=== PATIENT | male | born 1980 | race American Indian/Alaskan Native ===

== ENCOUNTER → 2024-09-28 | Outpatient (CLI) | payer OTHER, SELFPAY ==
--- NOTE | 2024-09-28 16:30 | XR_ITS ---
Exam: MRI knee without contrast, right Date and time of exam: September 28, 2024 1702 hours Comparison March 04, 2023 INDICATIONS: History complex tear posterior horn medial meniscus reconstructed anterior cruciate ligament MRI study March 04, 2023, additional weakness instability beginning 2008 Technique: Multiple axial, coronal, and sagittal sections on the knee have been obtained. T2-Weighted sagittal, fat-suppressed images, TR 3,500, TE 62, T2 weighted coronal fat-saturated images, TR 3,500, TE 62 Proton density sagittal sections, TR 1800, TE 31. T-1 weighted coronal images, TR 524, TE 13.0 Findings: Medial meniscus anterior horn intact Medial meniscus, body truncation inner margin which may be postsurgical. Posterior horn medial meniscus truncation inner margin, complex vertical and horizontal tears. Lateral meniscus anterior horn is intact Lateral meniscus, body is intact Posterior horn lateral meniscus is intact Reconstructed anterior cruciate ligament intact Posterior cruciate ligament appears intact. Knee effusion is small. Quadriceps and patellar tendons appear intact. There is no evidence of tendinosis. Inflammatory change or fracture of Hoffa's fat pad is not seen. Medial patellar facet demonstrates moderate thinning. Lateral patellar facet cartilage demonstrates moderate thinning. Trochlear cartilage demonstrates moderate thinning. Marrow signal magnetic susceptibility artifact secondary to orthopedic hardware. Medial collateral ligament appears intact. No meniscocapsular separation is seen. Illiotibial band and fibular collateral ligament are intact. Biceps femoris tendons appear intact. Medial femoral condylar articular cartilage demonstrates moderate thinning. Lateral femoral condylar articular cartilage demonstratesmoderate thinning. Tibial plateau cartilage demonstrates moderate thinning. Impression: Complex tear posterior horn medial meniscus Intact reconstructed anterior cruciate ligament
== END | disposition home or self-care (01) ==
PROVIDERS: Referring Provider Nurse Practitioner Family; Visit Provider Nurse Practitioner Family
DX: S83.241A Other tear of medial meniscus, current injury, right knee, initial encounter (principal); X58.XXXA Exposure to other specified factors, initial encounter
CPT/HCPCS: 73721

== ENCOUNTER → 2024-12-18 | Outpatient (CLI) | payer OTHER, SELFPAY ==
--- NOTE | 2024-12-18 11:50 | XR_ITS ---
Examination: Hand, right 3 views Technique: Hand AP, oblique, lateral 3 views Date and time of exam: December 18, 2024 1316 hours INDICATIONS: Patient fell 3 weeks ago with fracture fifth metacarpal FINDINGS: Early healing fracture fifth metacarpal with mild dorsal angulation at the fracture site Healing fracture base fourth metacarpal with satisfactory alignment IMPRESSION: Early healing fracture fifth metacarpal with mild dorsal angulation at the fracture site Healing fracture base fourth metacarpal with satisfactory alignment
--- NOTE | 2024-12-18 11:51 | XR_ITS ---
Examination: Wrist, right 3 views Technique: Wrist AP, oblique, lateral 3 views Date and time of exam: December 18, 2024 1316 hours INDICATIONS: Patient fell 3 weeks ago with hand fractures FINDINGS: Healing fracture distal fifth metacarpal with dorsal angulation, mild at the fracture site Healing fracture base fourth metacarpal with satisfactory alignment IMPRESSION: Healing fractures fourth and fifth metacarpals as above
== END | disposition home or self-care (01) ==
LOC: SDIM 11:41
PROVIDERS: Referring Provider Nurse Practitioner Gerontology; Visit Provider Nurse Practitioner Gerontology
DX: S62.316A Displaced fracture of base of fifth metacarpal bone, right hand, initial encounter for closed fracture (principal); S62.314A Displaced fracture of base of fourth metacarpal bone, right hand, initial encounter for closed fracture; W19.XXXA Unspecified fall, initial encounter
CPT/HCPCS: 73110; 73130

== ENCOUNTER 2025-03-12 09:13 | Outpatient (RCR) | payer OTHER, SELFPAY ==
--- NOTE | 2025-03-12 09:42 | PT.OIERPT ---
PT OP Initial Eval Patient Information Outpatient Physical Therapy Treatment Date: 03/12/25 Visit Reasons: Rt hand pain Medical Diagnosis: Right Closed displaced fracture of base of 5th metacarpal bone Treatment Dx #1: Right Hand Pain Treatment Dx #2: Right Hand Mobility Deficits Start of Care: 03/12/25 Date of Onset: December 2024 Smoking Status Smoking Status: Never smoker Initial Assessment Subjective: Pt is a 44 y/o male s/p right 5th metacarpal ORIF December 2024 due to fracture from a fall. Pt had the pin removed 02/14/25. Pt still has pain (6/10) with activities. Pt has limitation with gripping, lifting, chores, recreational activities, and performing ADLs. Objective: Right Wrist AROM: all motions are WNL Right Wrist MMTs: grossly 4-/5 Right MCP Flexion: 80 deg Online Education Manager Strength L: 100 lbs R: 105 lbs Assessment: Pt demonstrate right hand pain with mobility deficits s/p surgery leading to difficulty with ADLs. Pt will benefit from physical therapy to increase ROM, strength, and work on hand dexterity Short Term and Fdc Goals 1) Increase right japanese interpreter strength to 110 lbs in 6 wks to be able to perform gripping activities 2) Decrease hand pain to 2/10 in 6 wks to be able to perform recreational activities 3) Increase right 5th digit flexion AROM WNL in 6 wks to be able to perform ADLs. 4) Indep with HEP Treatment Plan 1) Manual Therapy 2) Therapeutic Activities 3) Therapeutic Exercises 4) Modalities (ice, heat) Frequency and Duration: 2 x wk for 6 wks Certification Dates: 03/12/25 to 06/12/25 Procedure Charges OP PT Eval Mod Complex 30 minutes: Yes
== END 2025-03-15 23:59 | disposition home or self-care (01) ==
LOC: CPTX 09:13
PROVIDERS: PCP Surgery; Referring Provider Surgery; Visit Provider Surgery
DX: M79.641 Pain in right hand (principal); S62.316D Displaced fracture of base of fifth metacarpal bone, right hand, subsequent encounter for fracture with routine healing; X58.XXXD Exposure to other specified factors, subsequent encounter
CPT/HCPCS: 97162

== ENCOUNTER 2025-04-11 08:00 | Outpatient (RCR) | payer OTHER, SELFPAY ==
--- NOTE | 2025-03-20 08:44 | PT.ODAYNRPT ---
PT Outpatient Daily Note OP Daily Note Outpatient Physical Therapy Treatment Date: 03/20/25 Visit Reasons: right hand pain Subjective: Pt's hand is much better. Pt has been using his partner's weight at home for hand exercises. Pt is unsure if it's 5# or 1#. Objective: Please see flow chart for list of ther ex performed Assessment: patient tolerate exercises well with minimal pain. Pt cue to pace with hand exercises to decrease fatigue Plan: Continue with PT Length of Time (minutes) of Treatment: 30 Minutes Procedure Charges Therapeutic Exercise 30 minutes: Yes
--- NOTE | 2025-03-27 08:32 | PT.ODAYNRPT ---
PT Outpatient Daily Note OP Daily Note Outpatient Physical Therapy Treatment Date: 03/27/25 Visit Reasons: right hand pain Subjective: Pt's right hand is better. Pt denies of soreness after last session. Pt wants to increase hand resistance today Objective: Please see flow chart for list of ther ex performed Assessment: progress patient to all green hand resistance exercise with good form noted. Pt tolerate exercise well and denies of pain. Cues to decrease upper trape recruitment with internal and external band exercise Plan: Continue with PT Length of Time (minutes) of Treatment: 30 Minutes Procedure Charges Therapeutic Exercise 30 minutes: Yes
--- NOTE | 2025-04-03 08:27 | PT.ODAYNRPT ---
PT Outpatient Daily Note OP Daily Note Outpatient Physical Therapy Treatment Date: 04/03/25 Visit Reasons: right hand pain Subjective: Pt's hand feels good. No new concerns to report. Pt feels stronger and wants to be challenge in therapy. Objective: Please see flow chart for list of ther ex performed Assessment: all exercises performed with green resistance with good form and tolerance noted. Pt demonstrate functional 5th digit flexion AROM and can now make a fist Plan: Continue with PT Length of Time (minutes) of Treatment: 30 Minutes Procedure Charges Therapeutic Exercise 30 minutes: Yes
--- NOTE | 2025-04-11 08:31 | PT.ODAYNRPT ---
PT Outpatient Daily Note OP Daily Note Outpatient Physical Therapy Treatment Date: 04/11/25 Visit Reasons: right hand pain Subjective: Pt's hand is feeling stronger with less pain. Pt has been able to drive longer with less limitation. Objective: Please see flow chart for list of ther ex performed Assessment: continue to progress with resistance and progress patient to green TB/hand resistance equipment Plan: Continue with PT Length of Time (minutes) of Treatment: 30 Minutes Procedure Charges Therapeutic Exercise 30 minutes: Yes
== END 2025-04-15 23:59 | disposition home or self-care (01) ==
LOC: CPTX 08:00
PROVIDERS: PCP Surgery; Referring Provider Surgery; Visit Provider Surgery
DX: M79.641 Pain in right hand (principal); S62.316D Displaced fracture of base of fifth metacarpal bone, right hand, subsequent encounter for fracture with routine healing; W19.XXXD Unspecified fall, subsequent encounter
CPT/HCPCS: 97110

== ENCOUNTER 2025-04-24 08:01 | Outpatient (RCR) | payer OTHER, SELFPAY ==
--- NOTE | 2025-04-24 08:41 | PT.ODAYNRPT ---
PT Outpatient Daily Note OP Daily Note Outpatient Physical Therapy Treatment Date: 04/24/25 Visit Reasons: RT hand pain Subjective: Pt reports R hand is progressing, he can perform his ADLs. Objective: Please see flow sheet for ther ex list. Assessment: Pt able to perform functional strengthening exercises with good technique. Plan: Continue with poC. Length of Time (minutes) of Treatment: 30 Minutes Procedure Charges Therapeutic Exercise 30 minutes: Yes
== END 2025-05-15 23:59 | disposition home or self-care (01) ==
LOC: CPTX 08:01
PROVIDERS: PCP Surgery; Referring Provider Surgery; Visit Provider Surgery
DX: M79.641 Pain in right hand (principal); S62.316D Displaced fracture of base of fifth metacarpal bone, right hand, subsequent encounter for fracture with routine healing; W19.XXXD Unspecified fall, subsequent encounter
CPT/HCPCS: 97110

== ENCOUNTER 2025-06-11 08:00 | Outpatient (RCR) | payer OTHER, SELFPAY ==
--- NOTE | 2025-05-17 15:59 | PT.ODAYNRPT ---
PT Outpatient Daily Note OP Daily Note Outpatient Physical Therapy Treatment Date: 05/17/25 Visit Reasons: RIGHT HAND PAIN Subjective: Pt's hand feels better and stronger. Pt is also doing physical therapy at [facility] for his knee due to ligamentous injury. Objective: Please see flow chart for list of ther ex performed Assessment: tolerate exercises performed. Pt demonstrate fill 5th digit flexion AROM Plan: Continue with PT Length of Time (minutes) of Treatment: 30 Minutes Procedure Charges Therapeutic Exercise 30 minutes: Yes
--- NOTE | 2025-05-22 09:35 | PT.ODAYNRPT ---
PT Outpatient Daily Note OP Daily Note Outpatient Physical Therapy Treatment Date: 05/22/25 Visit Reasons: RIGHT HAND PAIN Subjective: Pt's hand is good. No concerns to report. Pt is satisfy that making a fist is getting easier. Objective: Please see flow chart for list of ther ex performed Assessment: tolerate exercises with minimal pain. slight fatigue post PT session Plan: Continue with PT Length of Time (minutes) of Treatment: 30 Minutes Procedure Charges Therapeutic Exercise 30 minutes: Yes
--- NOTE | 2025-05-29 09:56 | PT.ODAYNRPT ---
PT Outpatient Daily Note OP Daily Note Outpatient Physical Therapy Treatment Date: 05/29/25 Visit Reasons: RIGHT HAND PAIN Subjective: Pt's hand is much better. Pt seen hand specialist and mentioned they have release him from care and to complete recommended PT sessions. Objective: Please see flow chart for list of ther ex performed Assessment: progressing well with hand exercises. Pt tolerate all exercises with minimal pain reported Plan: Continue with PT Length of Time (minutes) of Treatment: 30 Minutes Procedure Charges Therapeutic Exercise 30 minutes: Yes
--- NOTE | 2025-06-11 08:35 | PT.ODAYNRPT ---
PT Outpatient Daily Note OP Daily Note Outpatient Physical Therapy Treatment Date: 06/11/25 Visit Reasons: RIGHT HAND PAIN Subjective: Pt's hand feels much better. Pt feels stronger and has been able to use the hand for more ADLs around the house. Objective: Please see flow chart for list of ther ex performed Assessment: progressing with hand exercises and added wrist roll with fatigue reported post exercise Plan: Continue with PT Length of Time (minutes) of Treatment: 30 Minutes Procedure Charges Therapeutic Exercise 30 minutes: Yes
== END 2025-06-15 23:59 | disposition home or self-care (01) ==
LOC: CPTX 08:00
PROVIDERS: PCP Surgery; Referring Provider Surgery; Visit Provider Surgery
DX: M79.641 Pain in right hand (principal); S62.316D Displaced fracture of base of fifth metacarpal bone, right hand, subsequent encounter for fracture with routine healing; W19.XXXD Unspecified fall, subsequent encounter
CPT/HCPCS: 97110

== ENCOUNTER 2025-06-18 08:04 | Outpatient (RCR) | payer OTHER, SELFPAY ==
--- NOTE | 2025-06-18 12:10 | PT.ODS1RPT ---
PT OP Progress/Discharge Note Date of Service: 06/18/25 Progress Note/DC Note Progress Note/Discharge Note: DC Note Patient Information Visit Reasons: right hand pain Medical Diagnosis: Right Closed Displaced Fracture of the base of 5th metacarpal bone Treatment Dx #1: Right Hand Pain Treatment Dx #2: Right Hand Mobility Deficits Service Continue Service or Discharge: Discharge Discharge Date: 06/18/25 Status Subjective: Pt's hand feels much better. Pt has been able to make a fist, perform chores, self care, and recreational activities with less limitation. At this time Pt feels comfortable being release from physical therapy with exercises to continue at home. Objective: Right Wrist AROM: all motions are WNL Right Wrist MMTs: grossly 4/5 Right 5th MCP Flexion AROM: all motions are WFL Lead Etl Developer Strength L: 105 lbs R: 100 lbs Assessment: Pt demonstrate functional hand mobility and strength allowing him to resume ADLs, gripping, lifting, and recreational activities with less limitation. At this time Pt will no longer benefit from physical therapy due to plateau towards goals. Pt was instructed on HEP last session and educated to continue exercises to maintain overall mobility. Pt performed all exercises safely, thank you for your referrals. Plan: D/C home with HEP and follow up with MD LOPEZ Procedure Charges Therapeutic Exercise 30 minutes: Yes
== END 2025-07-15 23:59 | disposition home or self-care (01) ==
LOC: CPTX 08:04
PROVIDERS: PCP Surgery; Referring Provider Surgery; Visit Provider Surgery
DX: M79.641 Pain in right hand (principal); S62.316D Displaced fracture of base of fifth metacarpal bone, right hand, subsequent encounter for fracture with routine healing; W19.XXXD Unspecified fall, subsequent encounter
CPT/HCPCS: 97110